=== PATIENT | female | born 1975 | race Caucasian/White ===

== ENCOUNTER 2016-11-12 09:54 | Day surgery (SDC) | payer OTHER ==
[~2016-11-12] VITALS: Ht 157.5 cm; Wt 154.5 kg
[~2016-11-12 09:54] MED LIST: ADVAIR 100/501 DISK IH; ADVAIR 500/501 DISK IH; AZITHROMYCIN250 MG1 PO; FLOVENT 11120 INHALA IH; HYCODAN SYRUP480 ML PO; KLOR-CON M2020 MEQ PO; MAG-TAB SR84 MG PO; MORGIDOX100 MG PO; PRILOSEC20 MG PO; ZANTAC150 MG; ZANTAC150 MG PO; ZESTORETIC,P1 TABLE2 PO; ZESTRIL,PRINIVI20 MG PO
[2016-11-12 10:26] VITALS: BP 126/78
[2016-11-12 11:17] LABS: QUANTITATIVE HCG < 4.0 MIU/ML
[2016-11-12 11:57] LABS: POTASSIUM 3.4 MEQ/L (3.7-5.4)
[2016-11-12 14:30] VITALS: BP 120/59
[2016-11-12 16:05] VITALS: BP 120/77
== END 2016-11-12 16:05 | disposition home or self-care (01) ==
LOC: SDC 09:54 → EDSTATUS 13:26 → 2SOUTH 13:26 → SDC 13:28
PROVIDERS: Obstetrics & Gynecology Gynecology
PROC: 0UDB8ZX Extraction of Endometrium, Via Natural or Artificial Opening Endoscopic, Diagnostic (ICD-10-PCS; principal; 2016-11-12)
DX: N84.0 Polyp of corpus uteri (principal); N93.8 Other specified abnormal uterine and vaginal bleeding; N94.6 Dysmenorrhea, unspecified; N93.0 Postcoital and contact bleeding; E66.01 Morbid (severe) obesity due to excess calories; Z68.44 Body mass index [BMI] 60.0-69.9, adult; J45.909 Unspecified asthma, uncomplicated; K21.9 Gastro-esophageal reflux disease without esophagitis; K76.0 Fatty (change of) liver, not elsewhere classified; L68.0 Hirsutism; E78.5 Hyperlipidemia, unspecified; I10 Essential (primary) hypertension; R87.612 Low grade squamous intraepithelial lesion on cytologic smear of cervix (LGSIL); G47.33 Obstructive sleep apnea (adult) (pediatric); E28.2 Polycystic ovarian syndrome; Z87.11 Personal history of peptic ulcer disease; Z82.49 Family history of ischemic heart disease and other diseases of the circulatory system; Z83.3 Family history of diabetes mellitus; Z80.1 Family history of malignant neoplasm of trachea, bronchus and lung; Z82.5 Family history of asthma and other chronic lower respiratory diseases; Z87.891 Personal history of nicotine dependence; Z88.2 Allergy status to sulfonamides; Z88.1 Allergy status to other antibiotic agents; Z88.8 Allergy status to other drugs, medicaments and biological substances; Z91.018 Allergy to other foods
CPT/HCPCS: 84132; 84702; 88305; J0131; J2250; J3010

== ENCOUNTER 2016-11-16 10:16 | Emergency (ER) | payer OTHER ==
[~2016-11-16] VITALS: Ht 157.5 cm; Wt 155.2 kg
[2016-11-16 18:01] VITALS: BP 102/67
== END 2016-11-16 18:04 | disposition home or self-care (01) ==
LOC: EME 10:16
PROC: 3E0S3GC Introduction of Other Therapeutic Substance into Epidural Space, Percutaneous Approach (ICD-10-PCS; principal; 2016-11-16)
DX: G97.1 Other reaction to spinal and lumbar puncture (principal); Y84.4 Aspiration of fluid as the cause of abnormal reaction of the patient, or of later complication, without mention of misadventure at the time of the procedure; J45.909 Unspecified asthma, uncomplicated; R56.9 Unspecified convulsions; F32.9 Major depressive disorder, single episode, unspecified; K21.9 Gastro-esophageal reflux disease without esophagitis; I10 Essential (primary) hypertension; E66.01 Morbid (severe) obesity due to excess calories; Z68.43 Body mass index [BMI] 50.0-59.9, adult; Z87.891 Personal history of nicotine dependence
CPT/HCPCS: 99281; 99285; J2060; J7030

== ENCOUNTER 2017-04-17 23:17 | Emergency (ER) | payer OTHER ==
[~2017-04-17] VITALS: Ht 157.5 cm; Wt 158.1 kg
[2017-04-17 23:51] LABS: HEMATOCRIT 39.3 % (36.0-46.0); MCH 27.5 PG (29.0-34.0); MCHC 33.8 G/DL (30.0-36.0); MCV 81.4 FL (83-99); MEAN PLAT.VOLUME 11.1 uM^3 (9.5-12.4); PLATELET COUNT 176 K/uL (156-360); RBC DIS.WIDTH-CV 13.3 % (11.8-14.6); RBC DIS.WIDTH-SD 39.4 % (39-53); RED BLOOD COUNT 4.83 M/uL (3.80-5.20); WHITE BLOOD COUNT 8.2 K/uL (4.1-10.2)
[2017-04-17 23:59] LABS: CHLORIDE 105 mEq/L (99-109); POTASSIUM 3.6 mEq/L (3.7-5.4); SODIUM 138 mEq/L (136-147)
[2017-04-18 00:01] LABS: GLUCOSE 98 mg/dL (70-99)
[2017-04-18 00:02] LABS: ANION GAP 11 MEQ/L (2-14)
[2017-04-18 00:03] LABS: TOTAL BILIRUBIN 0.4 mg/dL (0.0-1.0)
[2017-04-18 00:05] LABS: ALKALINE PHOSPHATASE 73 IU/L (3-129); GFR ESTIMATE (CALCULATED) > 59 mL/min/
[2017-04-18 00:06] LABS: UREA NITROGEN (BUN) 6 mg/dL (9-23)
[2017-04-18 00:08] LABS: LIPASE 18 U/L (1.0-51.0)
[2017-04-18 00:14] LABS: QUANTITATIVE HCG < 4.0 MIU/ML
[2017-04-18 00:21] LABS: ADD MIUA? NO; BILIRUBIN NEGATIVE; BLOOD NEGATIVE; COLOR STRAW ((YELLOW)); GLUCOSE (STRIP) NEGATIVE; KETONES NEGATIVE; LEUKOCYTES NEGATIVE; NITRITE NEGATIVE; PROTEIN (STRIP) NEGATIVE; SPECIFIC GRAVITY 1.004 (1.000-1.030); UCUL ADDED? NO; UROBILINOGEN 0.2 MG/DL (0.2-1.0)
[2017-04-18] MEDS ORDERED: OMEPRAZOLE20 M2 PO (01:39)
[2017-04-18] MEDS ORDERED: ZOFRAN4 MG PO (01:39)
[2017-04-18 01:59] VITALS: BP 109/78
== END 2017-04-18 02:01 | disposition home or self-care (01) ==
LOC: EME 23:17
DX: R10.11 Right upper quadrant pain (principal); G89.29 Other chronic pain; J45.909 Unspecified asthma, uncomplicated; F32.9 Major depressive disorder, single episode, unspecified; E66.01 Morbid (severe) obesity due to excess calories; Z68.44 Body mass index [BMI] 60.0-69.9, adult; K75.4 Autoimmune hepatitis; Z87.891 Personal history of nicotine dependence; Z90.49 Acquired absence of other specified parts of digestive tract
CPT/HCPCS: 74176; 80053; 81003; 83690; 84702; 85027; 99281; 99284

== ENCOUNTER 2017-05-24 21:15 | Emergency (ER) | payer OTHER ==
[~2017-05-24] VITALS: Ht 157.5 cm; Wt 157.0 kg
[~2017-05-24 21:15] MED LIST changes: +OMEPRAZOLE20 M2 PO; +ZOFRAN4 MG PO
[2017-05-25 00:10] VITALS: BP 106/67
== END 2017-05-25 00:18 | disposition home or self-care (01) ==
LOC: EME 21:15
DX: M79.604 Pain in right leg (principal); J44.9 Chronic obstructive pulmonary disease, unspecified; E66.01 Morbid (severe) obesity due to excess calories; Z68.44 Body mass index [BMI] 60.0-69.9, adult; Z87.891 Personal history of nicotine dependence; F32.9 Major depressive disorder, single episode, unspecified; K75.4 Autoimmune hepatitis; Z91.040 Latex allergy status; Z88.2 Allergy status to sulfonamides
CPT/HCPCS: 93971; 99281; 99284

== ENCOUNTER 2017-07-04 05:53 | Emergency (ER) | payer OTHER ==
[~2017-07-04] VITALS: Ht 160 cm; Wt 155.6 kg
[2017-07-04 06:57] LABS: HEMATOCRIT 38.5 % (36.0-46.0); HEMOGLOBIN 12.8 G/DL (11.9-15.5); MCH 27.9 PG (29.0-34.0); MCHC 33.2 G/DL (30.0-36.0); MCV 84.1 FL (83-99); PLATELET COUNT 160 K/uL (156-360); RBC DIS.WIDTH-CV 13.4 % (11.8-14.6); RED BLOOD COUNT 4.58 M/uL (3.80-5.20)
[2017-07-04 07:28] LABS: TROP-I INTERPRETATION NEGATIVE; TROPONIN-I 0.01 ng/mL (0.0-0.30)
[2017-07-04 07:39] LABS: ALBUMIN 3.9 G/DL (3.2-4.8); CHLORIDE 104 MEQ/L (99-109); DIRECT BILIRUBIN 0.1 mg/dL (0.0-0.3); POTASSIUM 3.9 MEQ/L (3.7-5.4); SODIUM 138 MEQ/L (136-147); TOTAL BILIRUBIN 0.5 MG/DL (0.0-1.0)
[2017-07-04 07:45] LABS: ALKALINE PHOSPHATASE 61 IU/L (3-129); ALT (GPT) 27 IU/L (3-49); AST (GOT) 25 IU/L (2-34); CREATININE 0.6 MG/DL (0.6-1.3); GFR ESTIMATE (CALCULATED) > 59 mL/min/; GLUCOSE 97 mg/dL (70-99); LIPASE 17 U/L (1.0-51.0); TOTAL PROTEIN 5.9 G/DL (6.4-8.3); UREA NITROGEN (BUN) 9 mg/dL (9-23)
[2017-07-04 10:32] LABS: TROP-I INTERPRETATION NEGATIVE; TROPONIN-I < 0.01 ng/mL (0.0-0.30)
[2017-07-04] MEDS ORDERED: DELTASONE20 M1 PO (10:54)
[2017-07-04 11:18] VITALS: BP 121/62
== END 2017-07-04 11:19 | disposition home or self-care (01) ==
LOC: EME 05:53
PROVIDERS: Physician Assistant
DX: R07.9 Chest pain, unspecified (principal); J44.9 Chronic obstructive pulmonary disease, unspecified; F32.9 Major depressive disorder, single episode, unspecified; R56.9 Unspecified convulsions; D64.9 Anemia, unspecified; E66.01 Morbid (severe) obesity due to excess calories; K75.4 Autoimmune hepatitis; Z91.040 Latex allergy status; Z88.2 Allergy status to sulfonamides; Z88.1 Allergy status to other antibiotic agents; Z87.891 Personal history of nicotine dependence
CPT/HCPCS: 71046; 80048; 80076; 83690; 84484; 85027; 93005; 99281; 99284; J1885

== ENCOUNTER 2017-07-24 11:45 | Emergency (ER) | payer OTHER ==
[~2017-07-24] VITALS: Ht 157.5 cm; Wt 158.4 kg
[~2017-07-24 11:45] MED LIST changes: +DELTASONE20 M1 PO
[2017-07-24 13:23] LABS: HEMATOCRIT 41.1 % (36.0-46.0); HEMOGLOBIN 13.8 G/DL (11.9-15.5); MCHC 33.6 G/DL (30.0-36.0); MCV 83.5 FL (83-99); PLATELET COUNT 173 K/uL (156-360); RBC DIS.WIDTH-CV 13.5 % (11.8-14.6); RBC DIS.WIDTH-SD 41.1 % (39-53); RED BLOOD COUNT 4.92 M/uL (3.80-5.20); WHITE BLOOD COUNT 7.9 K/uL (4.1-10.2)
[2017-07-24 13:34] LABS: CHLORIDE 104 mEq/L (99-109); POTASSIUM 3.9 mEq/L (3.7-5.4); SODIUM 138 mEq/L (136-147)
[2017-07-24 13:34] LABS: APPEARANCE CLEAR ((CLEAR)); BILIRUBIN NEGATIVE; BLOOD NEGATIVE; COLOR YELLOW ((YELLOW)); GLUCOSE (STRIP) NEGATIVE; KETONES NEGATIVE; LEUKOCYTES NEGATIVE; NITRITE NEGATIVE; PROTEIN (STRIP) NEGATIVE; SPECIFIC GRAVITY 1.011 (1.000-1.030); UCUL ADDED? NO; UROBILINOGEN 0.2 MG/DL (0.2-1.0)
[2017-07-24 13:35] LABS: GLUCOSE 91 mg/dL (70-99)
[2017-07-24 13:39] LABS: CREATININE 0.7 mg/dL (0.6-1.3); GFR ESTIMATE (CALCULATED) > 59 mL/min/
[2017-07-24 13:40] LABS: UREA NITROGEN (BUN) 10 mg/dL (9-23)
[2017-07-24] MEDS ORDERED: ULTRAM50 MG PO (17:09)
[2017-07-24 17:42] VITALS: BP 117/67
== END 2017-07-24 17:43 | disposition home or self-care (01) ==
LOC: EME 11:45
DX: R10.84 Generalized abdominal pain (principal); N39.0 Urinary tract infection, site not specified; J45.909 Unspecified asthma, uncomplicated; R56.9 Unspecified convulsions; K75.4 Autoimmune hepatitis; E66.01 Morbid (severe) obesity due to excess calories; Z68.44 Body mass index [BMI] 60.0-69.9, adult; F32.9 Major depressive disorder, single episode, unspecified; Z91.040 Latex allergy status; Z88.2 Allergy status to sulfonamides; Z87.891 Personal history of nicotine dependence
CPT/HCPCS: 74177; 80048; 81003; 85027; 99281; 99285; J2270; J2405; J2930; J7030

== ENCOUNTER 2017-08-19 17:13 | Emergency (ER) | payer OTHER ==
[~2017-08-19] VITALS: Ht 157.5 cm; Wt 159.8 kg
[~2017-08-19 17:13] MED LIST changes: +ULTRAM50 MG PO
[2017-08-19] MEDS ORDERED: EPIPEN ADU0.3 MG/0.3 IM (18:54)
[2017-08-19] MEDS ORDERED: PREDNISONE20 MG PO (18:54)
[2017-08-19 19:29] VITALS: BP 119/66
== END 2017-08-19 19:31 | disposition home or self-care (01) ==
LOC: EME 17:13
DX: R06.00 Dyspnea, unspecified (principal); T78.1XXA Other adverse food reactions, not elsewhere classified, initial encounter; Z91.018 Allergy to other foods; J45.909 Unspecified asthma, uncomplicated; K75.4 Autoimmune hepatitis; F32.9 Major depressive disorder, single episode, unspecified; Z91.040 Latex allergy status; Z88.2 Allergy status to sulfonamides; Z87.891 Personal history of nicotine dependence
CPT/HCPCS: 99281; 99285

== ENCOUNTER → 2017-10-13 | Outpatient (CLI) | payer OTHER ==
[~2017-10-13] MED LIST changes: +EPIPEN ADU0.3 MG/0.3 IM; +PREDNISONE20 MG PO; -ZESTRIL,PRINIVI20 MG PO; +ZESTRIL30 MG PO
== END | disposition home or self-care (01) ==
LOC: RAD 15:00
DX: R11.2 Nausea with vomiting, unspecified (principal); Z87.19 Personal history of other diseases of the digestive system
CPT/HCPCS: 74174

== ENCOUNTER → 2017-10-18 | Outpatient (CLI) | payer OTHER | END | disposition home or self-care (01) | LOC: NUC 08:15 | DX: R11.2 Nausea with vomiting, unspecified (principal) | CPT/HCPCS: 78264; A9541 ==

== ENCOUNTER → 2017-10-27 | Outpatient (CLI) | payer OTHER ==
[~2017-10-27] VITALS: Ht 157.5 cm; Wt 156.9 kg
[~2017-10-27] MED LIST changes: +HYDROCHLOROTHIA25 MG PO
== END | disposition home or self-care (01) ==
LOC: AMB 12:36
DX: K63.5 Polyp of colon (principal); K76.0 Fatty (change of) liver, not elsewhere classified; E66.01 Morbid (severe) obesity due to excess calories; Z68.44 Body mass index [BMI] 60.0-69.9, adult; I10 Essential (primary) hypertension; J45.909 Unspecified asthma, uncomplicated; Z88.2 Allergy status to sulfonamides; K21.9 Gastro-esophageal reflux disease without esophagitis
CPT/HCPCS: 74018; 88305; 88307; 88313; C1726; J0330; J2405; J2765; J3010

== ENCOUNTER 2017-12-24 23:15 | Observation (INO) | payer OTHER ==
[~2017-12-24] VITALS: Ht 157.5 cm; Wt 158.0 kg
[~2017-12-24 23:15] MED LIST changes: -ZANTAC150 MG PO; +ZANTAC300 MG PO
[2017-12-25 00:03] LABS: HEMATOCRIT 37.9 % (36.0-46.0); HEMOGLOBIN 12.8 G/DL (11.9-15.5); MCH 27.1 PG (29.0-34.0); MCHC 33.8 G/DL (30.0-36.0); MCV 80.3 FL (83-99); PLATELET COUNT 179 K/uL (156-360); RBC DIS.WIDTH-CV 13.3 % (11.8-14.6); RBC DIS.WIDTH-SD 38.5 % (39-53); RED BLOOD COUNT 4.72 M/uL (3.80-5.20); WHITE BLOOD COUNT 8.2 K/uL (4.1-10.2)
[2017-12-25 00:14] LABS: CHLORIDE 104 mEq/L (99-109); POTASSIUM 3.6 mEq/L (3.7-5.4); SODIUM 141 mEq/L (136-147)
[2017-12-25 00:15] LABS: GLUCOSE 100 mg/dL (70-99)
[2017-12-25 00:19] LABS: CREATININE 0.7 mg/dL (0.6-1.3); GFR ESTIMATE (CALCULATED) > 59 mL/min/
[2017-12-25 00:20] LABS: UREA NITROGEN (BUN) 9 mg/dL (9-23)
[2017-12-25 00:25] LABS: TROP-I INTERPRETATION NEGATIVE; TROPONIN-I < 0.01 ng/mL (0.0-0.30)
[2017-12-25] MEDS ORDERED: NYSTOP60 GM TP (01:29)
[2017-12-25] MEDS ORDERED: KENALOG,ARISTOC15 G2 TP (01:29)
[2017-12-25] MEDS ORDERED: LISINOPRIL30 MG PO (01:32)
[2017-12-25] MEDS ORDERED: SERTRALINE HCL50 MG PO (01:32)
[2017-12-25] MEDS ORDERED: ALPRAZOLAM0.5 MG PO (01:33)
[2017-12-25] MEDS ORDERED: KLOR-CON M2020 MEQ PO (01:49)
[2017-12-25 03:22] VITALS: BP 114/56
[2017-12-25 08:02] VITALS: BP 120/58
[2017-12-25 09:19] LABS: TROP-I INTERPRETATION NEGATIVE; TROPONIN-I < 0.01 ng/mL (0.0-0.30)
[2017-12-25] MEDS ORDERED: ASPIR-LOW81 MG PO (10:33)
[2017-12-25 11:29] VITALS: BP 115/58
[2017-12-25 14:56] LABS: TROP-I INTERPRETATION NEGATIVE; TROPONIN-I 0.01 ng/mL (0.0-0.30)
== END 2017-12-25 15:31 | disposition home or self-care (01) ==
LOC: EME 23:15 → ENRESERV 12-25 01:27 → EDOF 12-25 01:27 → 4SOUTH 12-25 01:27 → EDOF 12-25 01:27 → ENRESERV 12-25 01:50 → 4SOUTH 12-25 02:55
PROVIDERS: Internal Medicine; Physician Assistant
DX: E66.01 Morbid (severe) obesity due to excess calories (principal); I10 Essential (primary) hypertension; K75.81 Nonalcoholic steatohepatitis (NASH); Z79.82 Long term (current) use of aspirin; F32.9 Major depressive disorder, single episode, unspecified; R00.2 Palpitations; R11.0 Nausea; Z90.49 Acquired absence of other specified parts of digestive tract; Z90.710 Acquired absence of both cervix and uterus; Z82.49 Family history of ischemic heart disease and other diseases of the circulatory system; Z88.1 Allergy status to other antibiotic agents; Z88.2 Allergy status to sulfonamides; Z91.040 Latex allergy status; Z91.018 Allergy to other foods
CPT/HCPCS: 71046; 80048; 84484; 85027; 85379; 93005; 94640; 94660; 99281; 99284; G0378; J2270; J2405

== ENCOUNTER 2017-12-29 19:34 | Emergency (ER) | payer OTHER ==
[~2017-12-29] VITALS: Ht 157.5 cm; Wt 155.9 kg
[~2017-12-29 19:34] MED LIST changes: +ALPRAZOLAM0.5 MG PO; +ASPIR-LOW81 MG PO; +KENALOG,ARISTOC15 G2 TP; +LISINOPRIL30 MG PO; +NYSTOP60 GM TP; +SERTRALINE HCL50 MG PO
[2017-12-29 21:00] LABS: HEMATOCRIT 40.6 % (36.0-46.0); HEMOGLOBIN 13.6 G/DL (11.9-15.5); MCH 26.9 PG (29.0-34.0); MCHC 33.5 G/DL (30.0-36.0); MCV 80.2 FL (83-99); PLATELET COUNT 205 K/uL (156-360); RBC DIS.WIDTH-CV 13.4 % (11.8-14.6); RBC DIS.WIDTH-SD 38.5 % (39-53); RED BLOOD COUNT 5.06 M/uL (3.80-5.20); WHITE BLOOD COUNT 9.8 K/uL (4.1-10.2)
[2017-12-29 21:13] LABS: CHLORIDE 103 mEq/L (99-109); POTASSIUM 3.5 mEq/L (3.7-5.4); SODIUM 139 mEq/L (136-147)
[2017-12-29 21:14] LABS: GLUCOSE 87 mg/dL (70-99)
[2017-12-29 21:18] LABS: CREATININE 0.7 mg/dL (0.6-1.3); GFR ESTIMATE (CALCULATED) > 59 mL/min/
[2017-12-29 21:19] LABS: UREA NITROGEN (BUN) 7 mg/dL (9-23)
[2017-12-29 21:26] LABS: QUANTITATIVE HCG < 4.0 MIU/ML
[2017-12-30 01:47] VITALS: BP 100/63
== END 2017-12-30 01:52 | disposition home or self-care (01) ==
LOC: EME 19:34
DX: K92.1 Melena (principal); N20.0 Calculus of kidney; R16.1 Splenomegaly, not elsewhere classified; J45.909 Unspecified asthma, uncomplicated; F32.9 Major depressive disorder, single episode, unspecified; E66.01 Morbid (severe) obesity due to excess calories; Z87.442 Personal history of urinary calculi; Z87.891 Personal history of nicotine dependence; Z90.49 Acquired absence of other specified parts of digestive tract; Z91.040 Latex allergy status; Z88.2 Allergy status to sulfonamides; Z88.1 Allergy status to other antibiotic agents
CPT/HCPCS: 74177; 80048; 84702; 85027; 86850; 86900; 86901; J7030